=== PATIENT | male | born 1945 | race African-American/Black ===

== ENCOUNTER 2022-01-20 10:48 | Emergency (ER) | payer SELFPAY ==
[~2022-01-20] VITALS: Ht 172.7 cm; Wt 87.0 kg
[2022-01-20 10:49] VITALS: BP 112/80
== END 2022-01-20 12:36 | disposition home or self-care (01) ==
LOC: ER 10:48
DX: B35.1 Tinea unguium (principal)
CPT/HCPCS: 99283